=== PATIENT | female | born 1965 | race Two or more races ===

== ENCOUNTER 2018-06-02 07:09 | Day surgery (SDC) | payer OTHER | END 2018-06-02 11:40 | disposition home or self-care (01) | LOC: AMB-ENDOS 07:09 | DX: K57.32 Diverticulitis of large intestine without perforation or abscess without bleeding (principal); K64.8 Other hemorrhoids ==

== ENCOUNTER 2019-11-03 06:00 | Day surgery (SDC) | payer OTHER | END 2019-11-03 10:05 | disposition home or self-care (01) | LOC: AMB-ENDOS 06:00 → ADM 15:15 → AMB-ENDOS 15:15 | PROVIDERS: ATTEND Surgery | DX: K29.50 Unspecified chronic gastritis without bleeding (principal); K44.9 Diaphragmatic hernia without obstruction or gangrene; Z20.828 Contact with and (suspected) exposure to other viral communicable diseases ==